=== PATIENT | male | born 1975 | race Native Hawaiian/Other Pacific Islander ===

== ENCOUNTER 2016-07-08 15:36 | Emergency (ER) | payer OTHER ==
[~2016-07-08] VITALS: Ht 182.9 cm; Wt 102.1 kg
[2016-07-08] MEDS ORDERED: ACETAMINOPHEN TAB 650MG DOSE (2X325MG) PO ONE (17:30)
[2016-07-08] MEDS ORDERED: NS 1,000 ML IV ONE (17:30)
[2016-07-08 17:58] LABS: CONTROL LINE MONO INT CTR LINE PRESENT
[2016-07-08 18:00] LABS: ANION GAP 8 MEQ/L (8-16); BASO % 0.1 % (0.0-1.0); BLOOD UREA NITROGEN 19 MG/DL (7-18); CARBON DIOXIDE LEVEL 27 MEQ/L (21-32); CHLORIDE LEVEL 102 MEQ/L (98-107); CREATININE FOR GFR 1.38 MG/DL (0.70-1.30); EOS % 0.2 % (0.0-3.0); GLOMERULAR FILTRATION RATE > 60.0 (>60); GLUCOSE, FASTING 102 MG/DL (70-105); LARGE UNSTAINED CELL # 0.1 K/mm3 (0.0-0.4); LARGE UNSTAINED CELL % 0.9 % (0.0-4.0); LYMPH # 0.6 K/mm3 (1.5-4.5); LYMPH % 4.7 % (24.0-44.0); MEAN CORPUSCULAR HEMOGLOBIN 27.7 pg (27.0-33.0); MEAN CORPUSCULAR HGB CONC 33.1 g/dl (32.0-36.5); MEAN CORPUSCULAR VOLUME 83.5 fl (80.0-96.0); MONO # 0.6 K/mm3 (0.0-0.8); MONO % 5.4 % (0.0-5.0); NEUTROPHILS # 10.2 K/mm3 (1.8-7.7); NEUTROPHILS % 88.7 % (36.0-66.0); PLATELET COUNT, AUTOMATED 209 k/mm3 (150-450); POTASSIUM SERUM 4.1 MEQ/L (3.5-5.1); SODIUM LEVEL 137 MEQ/L (136-145); WHITE BLOOD COUNT 11.5 K/mm3 (4.0-10.0)
[2016-07-08 18:05] LABS: INR 1.04
--- NOTE | 2016-07-08 19:40 | REP ---
CT BRAIN WITHOUT CONTRAST: 07/08/2016: Clinical history: Fever, headache. There are no prior studies. Findings: Ventricles are midline, fairly symmetric and without dilatation or displacement. Basal ganglia are symmetric and normal. White matter tracts are intact. The garcia-white junction differentiation maintained. Cortical stripe is preserved. There is no vascular territory infarct, hemorrhage, mass, mass effect or edema. There is a coarse calcification in the anterior falx as a benign finding. Posterior fossa shows the brainstem intact. Cerebellum shows no atrophy or masses. No posterior fossa hemorrhage. Basal cisterns are intact. Mastoids and sinuses are clear as visualized. The maxillary sinuses are excluded from the field of view. Skull base and calvarium are without fracture or focal lesion. Impression: 1. Negative CT brain. No intracranial bleed, mass, ventriculomegaly, acute infarct or extra-axial fluid collection. 2. Visualized sinuses and mastoids are clear. Skull base and calvarium also intact. Signed by Jd Carcamo MD 07/08/2016 07:52 P
[2016-07-08] MEDS ORDERED: AZITHROMYCIN 250 MG TAB PO ONE (19:45)
[2016-07-08] MEDS ORDERED: cefTRIAXone SOD 1 GM in D5W MINI-BAG PLUS 50 ML IV ONE (19:45)
[2016-07-08] MEDS ORDERED: AZIT250T3 PO (19:50)
[2016-07-08 20:24] VITALS: BP 115/57
--- NOTE | 2016-07-09 06:13 | REP ---
CHEST X-RAY PA AND LATERAL: 07/08/2016. Clinical history: Fever. Findings: Two-view show the lung zaragoza well inflated. The CP angles sharply defined without effusion. The lateral view shows density projecting over the lower lumbar spine and this would represent retrocardiac left lower lobe infiltrate. It is better seen on the lateral then frontal view. The heart, mediastinal and hilar contours are normal. There are no other lung findings. The aorta and airway intact. Bones intact. Impression: 1. Best seen on the lateral view is a retrocardiac left lower lobe pneumonia. No effusion. No other infiltrate. Signed by Jd Carcamo MD 07/09/2016 04:38 P
== END 2016-07-08 20:25 | disposition home or self-care (01) ==
LOC: EDBD 15:36 → M ED 16:40
DX: J18.1 Lobar pneumonia, unspecified organism (principal)
CPT/HCPCS: 70450; 71020; 80048; 81001; 85025; 85610; 85730; 86308; 87040; 87088; 87186; 87804; 87880; 96374; 99284; J0696